=== PATIENT | female | born 1940 | race Caucasian/White ===

== ENCOUNTER 2018-01-07 11:51 | Inpatient (IN) | payer OTHER ==
[~2018-01-07] VITALS: Ht 157.5 cm; Wt 73.0 kg
[2018-01-07] VITALS (10 sets, daily range): BP systolic 158–214; BP diastolic 53–92
[2018-01-07] MEDS ORDERED: IPRATRPIUM/ALBUTEROL 0.5/2.5MG 3 ML NEBU. ONE (12:27)
--- NOTE | 2018-01-07 12:37 | RAD ---
AP PORTABLE CHEST Clinical Indication: weakness, shortness of breath. Comparison: None. Findings: Atherosclerotic aortic arch. Cardiac size is normal. Mild pulmonary vascular congestion. There is left basilar airspace disease. Cannot exclude small left pleural effusion. There is no pneumothorax. Degenerative endplate spurring in the thoracic spine. IMPRESSION: 1. Left basilar pneumonia or atelectasis or scarring. 2. Cannot exclude small left pleural effusion. 3. Mild pulmonary vascular congestion.
[2018-01-07 12:41] LABS: BASO % 0 % (0-3); EOS % 0 % (0-3); HEMATOCRIT 33.4 % (36.0-47.0); HEMOGLOBIN 10.4 g/dL (12.0-15.5); LYMPH # 0.2 x10^3/uL (1.0-4.8); LYMPH % 2 % (24-48); MEAN CORPUSCULAR HEMOGLOBIN 28 pg (25-35); MEAN CORPUSCULAR HGB CONC 31 g/dL (31-37); MEAN CORPUSCULAR VOLUME 88 fL (79-100); MONO # 0.4 x10^3/uL (0.0-1.1); MONO % 4 % (0-9); NEUT # 9.7 x10^3uL (1.8-7.7); NEUT % 94 % (31-73); PLATELET COUNT 225 x10^3/uL (140-400); RED BLOOD COUNT 3.77 x10^6/uL (3.50-5.40); RED CELL DISTRIBUTION WIDTH 17.5 % (11.5-14.5); WHITE BLOOD COUNT 10.4 x10^3/uL (4.0-11.0)
[2018-01-07] MEDS ORDERED: IPRATRPIUM/ALBUTEROL 0.5/2.5MG 3 ML NEBU. NEB ONE (12:45)
[2018-01-07] MEDS ORDERED: methylPREDNISolone SOD SUCC PF 125 MG/2 ML VIAL. IV ONE (12:45)
--- NOTE | 2018-01-07 12:54 | PHYS DOC ---
Adult General Chief Complaint Chief Complaint: SHORTNESS OF BREATH HPI HPI 77-year-old male patient resident of assisted on 4 L of oxygen was seen this morning at her usual condition at her on 11 AM phoned with respiratory distress without home oxygen O2 sats of 70s that improved with starting oxygen to low 90s. Patient had history of recent hospitalization 2 weeks ago at [facility] for right great toe amputation and developed pneumonia and renal insufficiency. Patient is in respiratory distress and unable to give history. Review of Systems Review of Systems Unable to obtain because of medical condition and respiratory distress Current Medications Current Medications Current Medications Medications (Trade) Dose Ordered Sig/Carmelo Start Time Stop Time Status Last Admin Dose Admin Albuterol/ Ipratropium (Duoneb) 3 ml STK-MED ONCE 01/07/18 12:27 01/07/18 12:28 DC Methylprednisolone Sodium Succinate (SOLU-Medrol 125MG VIAL) 125 mg 1X ONCE 01/07/18 12:45 01/07/18 12:47 DC 01/07/18 12:34 125 MG Allergies Allergies Allergies Coded Allergies Type Severity Reaction Last Updated Verified morphine Allergy Unknown 01/07/18 Yes prochlorperazine Allergy Unknown 01/07/18 Yes trifluoperazine Allergy Unknown 01/07/18 Yes Physical Exam Physical Exam Constitutional: Well developed,moderate distress, non-toxic appearance. [] HENT: Normocephalic, atraumatic, bilateral external ears normal, oropharynx moist, no oral exudates, nose normal. [] Eyes: PERRLA, EOMI, conjunctiva normal, no discharge. [] Neck: Normal range of motion, no tenderness, supple, no stridor. [] Cardiovascular: No tachycardia, no murmur [] Lungs & Thorax: Respiratory distress with intercostal dissection and bilateral wheezing and rales Abdomen: Bowel sounds normal, soft, no tenderness, no masses, no pulsatile masses. [] Skin: Warm, dry, no erythema, groin rash Back: No tenderness, no CVA tenderness. [] Extremities: No tenderness, no cyanosis, no clubbing, ROM intact, no edema, right great toe in surgical dressing after amputation. [] Neurologic: Alert and oriented X 3, moves all extremities Current Patient Data Lab Results Laboratory Tests Test 01/07/18 12:10 White Blood Count 10.4 x10^3/uL (4.0-11.0) Red Blood Count 3.77 x10^6/uL (3.50-5.40) Hemoglobin 10.4 g/dL (12.0-15.5) L Hematocrit 33.4 % (36.0-47.0) L Mean Corpuscular Volume 88 fL (79-100) Mean Corpuscular Hemoglobin 28 pg (25-35) Mean Corpuscular Hemoglobin Concent 31 g/dL (31-37) Red Cell Distribution Width 17.5 % (11.5-14.5) H Platelet Count 225 x10^3/uL (140-400) Neutrophils (%) (Auto) 94 % (31-73) H Lymphocytes (%) (Auto) 2 % (24-48) L Monocytes (%) (Auto) 4 % (0-9) Eosinophils (%) (Auto) 0 % (0-3) Basophils (%) (Auto) 0 % (0-3) Neutrophils # (Auto) 9.7 x10^3uL (1.8-7.7) H Lymphocytes # (Auto) 0.2 x10^3/uL (1.0-4.8) L Monocytes # (Auto) 0.4 x10^3/uL (0.0-1.1) Eosinophils # (Auto) 0.0 x10^3/uL (0.0-0.7) Basophils # (Auto) 0.0 x10^3/uL (0.0-0.2) Prothrombin Time 11.3 SEC (9.4-11.4) Prothrombin Time INR 1.1 (0.9-1.1) EKG EKG EKG interpreted by me. EKG at 1236 showed normal sinus rhythm, prolonged SD interval, poor R-wave progress in anterior leads, no acute ST and T wave abnormality,[] Radiology/Procedures Radiology/Procedures [] [address] [address] IMAGING REPORT Signed PATIENT: DENIS CASSIDY ACCOUNT: [id number] : 1940 LOCATION: ER AGE: 77 SEX: F EXAM STATUS: PRE ER ORD. PHYSICIAN: ANDREW NUNEZ MD REASON: weakness of breath PROCEDURE: PORTABLE CHEST 1V AP PORTABLE CHEST Clinical Indication: weakness, shortness of breath. Comparison: None. Findings: Atherosclerotic aortic arch. Cardiac size is normal. Mild pulmonary vascular congestion. There is left basilar airspace disease. Cannot exclude small left pleural effusion. There is no pneumothorax. Degenerative endplate spurring in the thoracic spine. IMPRESSION: 1. Left basilar pneumonia or atelectasis or scarring. 2. Cannot exclude small left pleural effusion. 3. Mild pulmonary vascular congestion. DICTATED AND SIGNED BY: DAY BULLARD MD DATE: 01/07/18 1232 CC: ANDREW NUNEZ MD ~ Course & Med Decision Making Course & Med Decision Making Pertinent Labs and Imaging studies reviewed. (See chart for details) Evaluation of patient in ER showed 77-year-old female patient with recent hospitalization with pneumonia brought in because of hypoxia. Patient has respiratory distress and BiPAP was started because of CO2 of 60 and PaO2 of 69. Patient had several abnormal finding and treated with IV fluid because of sepsis even BNP was elevated. Antibiotic for pneumonia and influenza A was started. Plan to admit patient to ICU. Dr. Villalobos informed at 1340 and agreed with her and of care. Patient and her family informed about plan of care and needs for admission. Repeat ABG is pending. Dragon Disclaimer Dragon Disclaimer This electronic medical record was generated, in whole or in part, using a voice recognition dictation system. Departure Departure: Impression: Primary Impression: Sepsis Additional Impressions: HCAP (healthcare-associated pneumonia) Hypoxia UTI (urinary tract infection) Renal insufficiency Hyperkalemia CHF (congestive heart failure) Uncontrolled diabetes mellitus Influenza A Skin rash Disposition: ADMITTED INPATIENT (At 1342) Admitting Physician: Bernarda Villalobos Condition: GUARDED Referrals: NON,STAFF (PCP) Critical Care Time Critical care time was [80] minutes exclusive of procedures. Problem Qualifiers ANDREW NUNEZ MD Jan 07, 2018 12:54
[2018-01-07 12:55] LABS: INFLUENZA A PATIENT POSITIVE (NEGATIVE); INFLUENZA B PATIENT NEGATIVE (NEGATIVE)
[2018-01-07 12:58] LABS: ALBUMIN 2.6 g/dL (3.4-5.0); ALBUMIN/GLOBULIN RATIO 0.6 (1.0-1.7); CALCIUM 9.6 mg/dL (8.5-10.1); CREATININE 1.6 mg/dL (0.6-1.0); GFR 31.1; TOTAL BILIRUBIN 0.4 mg/dL (0.2-1.0); TOTAL PROTEIN 7.2 g/dL (6.4-8.2)
[2018-01-07 13:00] LABS: POTASSIUM 6.1 mmol/L (3.5-5.1)
[2018-01-07] MEDS ORDERED: IV NORMAL SALINE 1,000ML 1,000 ML IV ONE (13:15)
[2018-01-07] MEDS ORDERED: SODIUM POLYSTYRENE SULFONATE 15 GM/60 ML ORAL.SUSP. PO ONE (13:30)
[2018-01-07] MEDS ORDERED: INSULIN REGULAR 100 UNIT/ML 10ML VIAL. IV ONE (13:30)
[2018-01-07] MEDS ORDERED: ALBUTEROL SULFATE 2.5 MG/3 ML NEBU. CONT NEB ONE (13:30)
[2018-01-07] MEDS ORDERED: SODIUM BICARB ADULT 8.4% 50 MEQ/50 ML DISP.SYRIN. IV ONE (13:30)
[2018-01-07] MEDS ORDERED: DEXTROSE 50% 25 GM / 50ML DISP.SYRIN. IV ONE (13:30)
[2018-01-07] MEDS ORDERED: IV NORMAL SALINE 50ML 50 ML ONE (13:35)
[2018-01-07] MEDS ORDERED: PIPERACILLIN/TAZOBACTAM 3.375 GM VIAL IV ONE (13:35)
[2018-01-07] MEDS ORDERED: VANCOMYCIN 1 GM VIAL. ONE (13:36)
[2018-01-07 13:37] LABS: BGAS PH 7.33 (7.35-7.45)
[2018-01-07 13:38] LABS: AMORPHOUS SEDIMENT,UR PRESENT /HPF; BACTERIA,URINE MOD /HPF (0-FEW); BILIRUBIN,URINE NEG (NEG); CLARITY,URINE CLOUDY; COLOR,URINE YELLOW; GLUCOSE,URINE 100 mg/dL (NEG); NITRITE,URINE NEG (NEG); SQUAMOUS EPITHELIAL CELL,UR FEW /LPF; UROBILINOGEN,URINE 0.2 mg/dL (0.2 mg/dL); WBC,URINE >40 /HPF (0-4)
[2018-01-07] MEDS ORDERED: OSELTAMIVIR 75 MG CAPSULE PO ONE (13:45)
[2018-01-07] MEDS ORDERED: VANCOMYCIN 1 GM in IV NORMAL SALINE 250ML 250 ML IV ONE (13:45)
[2018-01-07] MEDS ORDERED: PIPERACILLIN/TAZOBACTAM 3.375 GM in IV NORMAL SALINE 50ML 50 ML IV ONE (13:45)
[2018-01-07] MEDS ORDERED: VANCOMYCIN PER PHARMACY MC PRN (15:00)
[2018-01-07] MEDS ORDERED: PIP/TAZO PER PHARMACY MC PRN (15:00)
[2018-01-07] MEDS ORDERED: ACETAMINOPHEN 500 MG TABLET PO PRN (15:00)
[2018-01-07] MEDS: IV NORMAL SALINE 1,000ML 1,000 ML IV SCH (15:00)
[2018-01-07] MEDS ORDERED: VANCOMYCIN 2 GM in IV NORMAL SALINE 500ML 500 ML IV ONE (16:00)
[2018-01-07 16:10] LABS: CALCIUM 8.9 mg/dL (8.5-10.1); CREATININE 1.5 mg/dL (0.6-1.0); GFR 33.5; POTASSIUM 4.5 mmol/L (3.5-5.1)
--- NOTE | 2018-01-07 18:34 | EKG ---
[address] [address] Test Date: 2018-01-07 Test Time: 12:36:44 Pat Name: DENIS CASSIDY Department: Room: ICU02 1 Gender: F Manager Payment: RHONDA : 1940 Requested By: ANDREW NUNEZ Order Number: [id number] Reading MD: Conrad Mtz Measurements Intervals [place] Rate: 82 P: 90 SC: 264 QRS: 2 QRSD: 76 T: 56 QT: 354 QTc: 416 Interpretive Statements SINUS RHYTHM PROLONGED SC INTERVAL R-S TRANSITION ZONE IN V LEADS DISPLACED TO THE LEFT ST & T ABNORMALITY, CONSIDER HIGH LATERAL ISCHEMIA OR LEFT VENTRICULAR STRAIN ABNORMAL ECG RI6.01 No previous ECG available for comparison Electronically Signed On 01-08-2018 16:45:34 RETIREMENT SPECIALIST by Conrad Mtz
[2018-01-07 19:25] LABS: BGAS PH 7.26 (7.35-7.45)
[2018-01-07] MEDS ORDERED: LABETALOL 20 MG/4 ML DISP.SYRIN. IVP PRN (19:30)
[2018-01-07] MEDS ORDERED: DEXTROSE 50% 25 GM / 50ML DISP.SYRIN. IV PRN (19:30)
[2018-01-07] MEDS: LABETALOL 20 MG/4 ML DISP.SYRIN. IVP PRN ×2 (19:47→23:05)
--- NOTE | 2018-01-07 21:50 | PDOC1 ---
HISTORY & PHYSICAL HPI: HPI: 77-year-old male patient resident of [facility] on 4 L of oxygen was seen this morning at her usual condition at her on 11 AM phoned with respiratory distress without home oxygen O2 sats of 70s that improved with starting oxygen to low 90s. Patient had history of recent hospitalization 2 weeks ago at [facility] for right great toe amputation and developed pneumonia and renal insufficiency. Patient is in respiratory distress and unable to give history.is positive for influenza A. Did get the flu shot. Was placed on bipap in the Er for acute hypoxic hypercarbic respiratory failure. Also has pneumonia.2 PROBLEMS: Problems Medical Problems: (1) Influenza A Status: Acute (2) Sepsis Status: Acute 3. recent right great toe amputation 4 ACUTE HYPOXIC HYPERCARBIC RESPIRATORY FAILURE ACCELERATED HYPERTENTION PNEUMONIA HYPERKALEMIA PAST MEDICAL HISTORY: PMH: DIABETES HYPERTENTION DIABETIC NEUROPATHY PSH: RIGHT GREAT TOE AMPUTATION-RECENT SH: FORMER SMOKER, LIVES IN HER OWN HOME ALLERGIES: Allergies Coded Allergies Type Severity Reaction Last Updated Verified morphine Allergy Unknown 01/07/18 Yes prochlorperazine Allergy Unknown 01/07/18 Yes trifluoperazine Allergy Unknown 01/07/18 Yes MEDS: MEDICATIONS: UNKNOWN SHE IS UNABLE TO VERBALIZE Current Medications Medications (Trade) Dose Ordered Sig/Carmelo Start Time Stop Time Status Last Admin Dose Admin Acetaminophen (Tylenol) 500 mg PRN Q6HRS PRN 01/07/18 15:00 Albuterol Sulfate (Ventolin) 10 mg 1X ONCE 01/07/18 13:30 01/07/18 13:31 DC 01/07/18 13:55 10 MG Albuterol/ Ipratropium (Duoneb) 3 ml RTQID 01/07/18 21:15 Dextrose 12.5 gm PRN Q15MIN PRN 01/07/18 19:30 Fentanyl Citrate (Fentanyl 2ml Vial) 25 mcg PRN Q4HRS PRN 01/07/18 21:30 Guaifenesin (MUCINEX ER with DM) 1 tab BID 01/07/18 21:30 Insulin Aspart (NovoLOG) 0-7 UNITS TIDACHC 01/07/18 21:00 Insulin Human Regular (NovoLIN R) 10 unit 1X ONCE 01/07/18 13:30 01/07/18 13:31 DC 01/07/18 14:10 10 UNIT Labetalol HCl (Normodyne) 10 mg PRN Q6HRS PRN 01/07/18 19:30 Lactobacillus Rhamnosus (Culturelle) 1 cap BID 01/07/18 21:00 Methylprednisolone Sodium Succinate (SOLU-Medrol 125MG VIAL) 125 mg 1X ONCE 01/07/18 12:45 01/07/18 12:47 DC 01/07/18 12:34 125 MG Oseltamivir Phosphate (Tamiflu) 75 mg BID 01/07/18 21:00 01/12/18 20:59 Piperacillin Sod/ Tazobactam Sod (Zosyn Per Pharmacy) 1 each PRN DAILY PRN 01/07/18 15:00 Piperacillin Sod/ Tazobactam Sod (Zosyn) 3.375 gm STK-MED ONCE 01/07/18 13:35 01/07/18 13:36 DC Piperacillin Sod/ Tazobactam Sod 3.375 gm/Sodium Chloride 50 ml @ 100 mls/hr Q6H 01/07/18 21:00 Sodium Polystyrene Sulfonate (Kayexalate) 15 gm 1X ONCE 01/07/18 13:30 01/07/18 13:31 DC 01/07/18 14:31 15 GM Sodium Bicarbonate 50 meq 1X ONCE 01/07/18 13:30 01/07/18 13:31 DC 01/07/18 13:46 50 MEQ Sodium Chloride 1,000 ml @ 75 mls/hr [id number] 01/07/18 13:54 01/08/18 13:53 01/07/18 15:00 75 MLS/HR Vancomycin HCl 1 each 1X ONCE 01/09/18 15:30 01/09/18 15:31 Vancomycin HCl (Vanco Per Pharmacy) 1 each PRN DAILY PRN 01/07/18 15:00 Vancomycin HCl 1.25 gm/Sodium Chloride 250 ml @ 167 mls/hr Q24H 01/08/18 16:00 Vancomycin HCl 1 gm/Sodium Chloride 250 ml @ 250 mls/hr 1X ONCE 01/07/18 13:45 01/07/18 14:44 DC Vancomycin HCl 2 gm/Sodium Chloride 500 ml @ 250 mls/hr 1X ONCE 01/07/18 16:00 01/07/18 17:59 DC 01/07/18 15:35 250 MLS/HR VITALS: Vital Signs Date Time Temp Pulse Resp B/P (MAP) Pulse Ox O2 Delivery O2 Flow Rate FiO2 01/07/18 20:30 22 94 BiPAP/CPAP 10.0 01/07/18 19:47 88 215/98 01/07/18 19:00 98.7 LABS: Laboratory Tests Test 01/07/18 11:55 01/07/18 12:10 01/07/18 12:20 01/07/18 13:05 Blood Gas pH 7.33 (7.35-7.45) Blood Gas PCO2 66 mmHg (35-45) Blood Gas PO2 69 mmHg (71-100) Blood Gas HCO3 33 mmol/L (22-26) Arterial Bld O2 Saturation (Calc) 92 % (92-99) FiO2 32 % White Blood Count 10.4 x10^3/uL (4.0-11.0) Red Blood Count 3.77 x10^6/uL (3.50-5.40) Hemoglobin 10.4 g/dL (12.0-15.5) Hematocrit 33.4 % (36.0-47.0) Mean Corpuscular Volume 88 fL (79-100) Mean Corpuscular Hemoglobin 28 pg (25-35) Mean Corpuscular Hemoglobin Concent 31 g/dL (31-37) Red Cell Distribution Width 17.5 % (11.5-14.5) Platelet Count 225 x10^3/uL (140-400) Neutrophils (%) (Auto) 94 % (31-73) Lymphocytes (%) (Auto) 2 % (24-48) Monocytes (%) (Auto) 4 % (0-9) Eosinophils (%) (Auto) 0 % (0-3) Basophils (%) (Auto) 0 % (0-3) Neutrophils # (Auto) 9.7 x10^3uL (1.8-7.7) Lymphocytes # (Auto) 0.2 x10^3/uL (1.0-4.8) Monocytes # (Auto) 0.4 x10^3/uL (0.0-1.1) Eosinophils # (Auto) 0.0 x10^3/uL (0.0-0.7) Basophils # (Auto) 0.0 x10^3/uL (0.0-0.2) Prothrombin Time 11.3 SEC (9.4-11.4) Prothromb Time International Ratio 1.1 (0.9-1.1) Sodium Level 138 mmol/L (136-145) Potassium Level 6.1 mmol/L (3.5-5.1) Chloride Level 101 mmol/L (98-107) Carbon Dioxide Level 33 mmol/L (21-32) Anion Gap 4 (6-14) Blood Urea Nitrogen 28 mg/dL (7-20) Creatinine 1.6 mg/dL (0.6-1.0) Estimated GFR (Cockcroft-Gault) 31.1 BUN/Creatinine Ratio 18 (6-20) Glucose Level 282 mg/dL (70-99) Lactic Acid Level 2.3 mmol/L (0.4-2.0) Calcium Level 9.6 mg/dL (8.5-10.1) Total Bilirubin 0.4 mg/dL (0.2-1.0) Aspartate Amino Transf (AST/SGOT) 28 U/L (15-37) Alanine Aminotransferase (ALT/SGPT) 27 U/L (14-59) Alkaline Phosphatase 86 U/L (46-116) Creatine Kinase 32 U/L (26-192) Creatine Kinase MB (Mass) 0.8 ng/mL (0.0-3.6) Creatine Kinase MB Relative Index 2.5 % (0-4) Troponin I Quantitative 0.060 ng/mL (0-0.055) GD-Sfe-G-Type Natriuretic Peptide 8829 pg/mL (0-449) Total Protein 7.2 g/dL (6.4-8.2) Albumin 2.6 g/dL (3.4-5.0) Albumin/Globulin Ratio 0.6 (1.0-1.7) Influenza Type A (Rapid) Positive (NEGATIVE) Influenza Type B (Rapid) Negative (NEGATIVE) Urine Collection Type U cath Urine Color Yellow Urine Clarity Cloudy Urine pH 5.0 Urine Specific [place] 1.025 Urine Protein >100 mg/dl (NEG-TRACE) Urine Glucose (UA) 100 mg/dL (NEG) Urine Ketones (Stick) Neg mg/dL (NEG) Urine Blood Mod (NEG) Urine Nitrite Neg (NEG) Urine Bilirubin Neg (NEG) Urine Urobilinogen Dipstick 0.2 mg/dL (0.2 mg/dL) Urine Leukocyte Esterase Trace (NEG) Urine RBC 1-2 /HPF (0-2) Urine WBC >40 /HPF (0-4) Urine Squamous Epithelial Cells Few /LPF Urine Amorphous Sediment Present /HPF Urine Bacteria Mod /HPF (0-FEW) Test 01/07/18 15:54 01/07/18 18:45 01/07/18 18:58 01/07/18 20:55 Sodium Level 143 mmol/L (136-145) Potassium Level 4.5 mmol/L (3.5-5.1) Chloride Level 105 mmol/L (98-107) Carbon Dioxide Level 34 mmol/L (21-32) Anion Gap 4 (6-14) Blood Urea Nitrogen 27 mg/dL (7-20) Creatinine 1.5 mg/dL (0.6-1.0) Estimated GFR (Cockcroft-Gault) 33.5 Glucose Level 184 mg/dL (70-99) Lactic Acid Level 1.3 mmol/L (0.4-2.0) Calcium Level 8.9 mg/dL (8.5-10.1) Blood Gas pH 7.26 (7.35-7.45) Blood Gas PCO2 69 mmHg (35-45) Blood Gas PO2 66 mmHg (71-100) Blood Gas HCO3 31 mmol/L (22-26) Arterial Bld O2 Saturation (Calc) 88 % (92-99) FiO2 35 % Troponin I Quantitative 0.102 ng/mL (0-0.055) Glucose (Fingerstick) 237 mg/dL (70-99) IMAGES: RESULTS: CXR-BILATERAL PNEUMONIA ROS: TIRED , SOB, PHYSICAL EXAM: PALE, TONGUE DRY NECK SUPPLE LUNGS WITH DIFFUSE WHEEZES BILATERALLY CVRRR-NOT TACHY ABDOMEN SOFT, NONTENDER TO PALPATION EXTREMETIES WITHOUT EDEMA-BANDAGE ON TIGHT GREAT TOE AREA. NOW MORE ALERT, RESTING MORE COMFORTABLY AFTER FENTANYL VTE PROPHYLAXIS: VTE Pharmacological Prophylaxi: Yes ASSESSMENT/PLAN ASSESSMENT: roblems: (1) Influenza A Status: Acute (2) Sepsis Status: Acute 3. recent right great toe amputation 4 ACUTE HYPOXIC HYPERCARBIC RESPIRATORY FAILURE ACCELERATED HYPERTENTION PNEUMONIA HYPERKALEMIA PLAN: BIPAP, ADJUSTMENTS MADE FOR HYPERCAPNIA, BREATHING TREATMENTS, ANTIBIOTICS. IF DOESN'T IMPROVE WILL SEND TO [facility]. RUSH ANTON DO Jan 07, 2018 21:50
[2018-01-07] MEDS: PIPERACILLIN/TAZOBACTAM 3.375 GM in IV NORMAL SALINE 50ML 50 ML IV SCH (21:53)
[2018-01-07] MEDS: IPRATRPIUM/ALBUTEROL 0.5/2.5MG 3 ML NEBU. NEB SCH (21:57)
[2018-01-07] MEDS: guaiFENesin DM 600/30MG 1 TAB TAB.ER.12H PO SCH (22:01)
[2018-01-07] MEDS: ENOXAPARIN 30 MG/0.3 ML DISP.SYRIN. SQ SCH (22:01)
[2018-01-07] MEDS: OSELTAMIVIR 75 MG CAPSULE PO SCH (22:01)
[2018-01-07] MEDS: LACTOBACILLUS RHAMNOSUS GG 1 CAPSULE. PO SCH (22:02)
[2018-01-07] MEDS: INSULIN ASPART 300 UNITS/3 ML INSULN.PEN SQ SCH (22:19)
[2018-01-07 22:39] LABS: BGAS PH 7.34 (7.35-7.45)
[2018-01-08] VITALS (21 sets, daily range): BP systolic 140–225; BP diastolic 50–101
[2018-01-08] MEDS: PIPERACILLIN/TAZOBACTAM 3.375 GM in IV NORMAL SALINE 50ML 50 ML IV SCH ×4 (03:04→21:10)
[2018-01-08] MEDS: IPRATRPIUM/ALBUTEROL 0.5/2.5MG 3 ML NEBU. NEB SCH ×4 (05:05→20:43)
[2018-01-08 06:48] LABS: ALBUMIN 2.3 g/dL (3.4-5.0); ALBUMIN/GLOBULIN RATIO 0.6 (1.0-1.7); CALCIUM 8.7 mg/dL (8.5-10.1); CREATININE 1.5 mg/dL (0.6-1.0); GFR 33.5; POTASSIUM 3.9 mmol/L (3.5-5.1); TOTAL BILIRUBIN 0.5 mg/dL (0.2-1.0); TOTAL PROTEIN 6.4 g/dL (6.4-8.2)
[2018-01-08] MEDS: IV NORMAL SALINE 1,000ML 1,000 ML IV SCH (08:04)
[2018-01-08 08:30] LABS: BGAS PH 7.44 (7.35-7.45)
[2018-01-08] MEDS: LACTOBACILLUS RHAMNOSUS GG 1 CAPSULE. PO SCH ×2 (08:31→21:10)
[2018-01-08] MEDS: guaiFENesin DM 600/30MG 1 TAB TAB.ER.12H PO SCH ×2 (08:31→21:10)
[2018-01-08] MEDS: OSELTAMIVIR 75 MG CAPSULE PO SCH ×2 (08:31→21:12)
[2018-01-08] MEDS: INSULIN ASPART 300 UNITS/3 ML INSULN.PEN SQ SCH ×4 (08:48→21:29)
[2018-01-08] MEDS ORDERED: hydrALAZINE 20 MG/ML VIAL. IV PRN (09:00)
[2018-01-08] MEDS ORDERED: ACETAMINOPHEN 500 MG TABLET PO PRN (09:00)
[2018-01-08] MEDS ORDERED: FUROSEMIDE 20 MG/2 ML VIAL ONE (09:10)
--- NOTE | 2018-01-08 09:48 | PDOC2 ---
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 She was apparently admitted to [facility] 2 weeks ago for a great toe amputation. She was then discharged to rehab. She developed pneumonia renal insufficiency. She was apparently seen yesterday am and was in stable condition. By lunchtime she had developed dyspnea and hypoxia with SaO2 down to 70s. This improved with oxygen and she was transported to the ED where she was found to be in acute hypercapnic, hypoxic respiratory failure and positive for influenza A. She was placed on BiPap which she continues to wear. History is difficult to obtain due to cough, dyspnea and BiPaP. She reports cough and dyspnea for about 4 days. She denies chest pain or palpitations. She reports prior history of CAD and stents and her last cath was about 4 years ago. Cardiovascular: CAD, CHF, HTN, hyperipidemia Pulmonary: COPD Renal/: Chronic renal insuff Endocrine: Diabetes, Other (diabetic neuropathy) Past Surgical History recent R great toe amputation amputation toes left foot Family History non contributory due to age Social History prior smoker, no illicit drugs, no significant ETOH. Lives in [place]. Current Medications Current Medications Methylprednisolone Sodium Succinate (SOLU-Medrol 125MG VIAL) 125 mg 1X ONCE IV Last administered on 01/07/18at 12:34; Start 01/07/18 at 12:45; Stop 01/07/18 at 12:47; Status DC Albuterol/ Ipratropium (Duoneb) 3 ml 1X ONCE NEB Last administered on at 12:42; Start 01/07/18 at 12:45; Stop 01/07/18 at 12:47; Status DC Albuterol/ Ipratropium (Duoneb) 3 ml STK-MED ONCE .ROUTE ; Start 01/07/18 at 12: 27; Stop 01/07/18 at 12:28; Status DC Albuterol Sulfate (Ventolin) 10 mg 1X ONCE CONT NEB Last administered on at 13:55; Start 01/07/18 at 13:30; Stop 01/07/18 at 13:31; Status DC Sodium Polystyrene Sulfonate (Kayexalate) 15 gm 1X ONCE PO Last administered on 01/07/18at 14:31; Start 01/07/18 at 13:30; Stop 01/07/18 at 13:31; Status DC Dextrose 25 gm 1X ONCE IV ; Start 01/07/18 at 13:30; Stop 01/07/18 at 13:31; Status DC Insulin Human Regular (NovoLIN R) 10 unit 1X ONCE IV Last administered on 01/07at 14:10; Start 01/07/18 at 13:30; Stop 01/07/18 at 13:31; Status DC Sodium Bicarbonate 50 meq 1X ONCE IV Last administered on 01/07/18at 13:46; Start 01/07/18 at 13:30; Stop 01/07/18 at 13:31; Status DC Oseltamivir Phosphate (Tamiflu) 75 mg 1X ONCE PO Last administered on at 13:43; Start 01/07/18 at 13:45; Stop 01/07/18 at 13:46; Status DC Piperacillin Sod/ Tazobactam Sod 3.375 gm/Sodium Chloride 50 ml @ 100 mls/hr 1X ONCE IV Last administered on 01/07/18at 14:30; Start 01/07/18 at 13:45; Stop 01/07/18 at 14:14; Status DC Vancomycin HCl 1 gm/Sodium Chloride 250 ml @ 250 mls/hr 1X ONCE IV ; Start 10/14 at 13:45; Stop 01/07/18 at 14:44; Status DC Sodium Chloride 1,000 ml @ 1,000 mls/hr 1X ONCE IV Last administered on at 13:51; Start 01/07/18 at 13:15; Stop 01/07/18 at 14:14; Status DC Sodium Chloride 50 ml @ As Directed STK-MED ONCE .ROUTE ; Start 01/07/18 at 13: 35; Stop 01/07/18 at 13:36; Status DC Piperacillin Sod/ Tazobactam Sod (Zosyn) 3.375 gm STK-MED ONCE IV ; Start at 13:35; Stop 01/07/18 at 13:36; Status DC Vancomycin HCl 1 gm STK-MED ONCE .ROUTE ; Start 01/07/18 at 13:36; Stop at 13:37; Status DC Sodium Chloride 1,000 ml @ 75 mls/hr [id number] IV Last administered on at 08:04; Start 01/07/18 at 13:54; Stop 01/08/18 at 13:53 Piperacillin Sod/ Tazobactam Sod (Zosyn Per Pharmacy) 1 each PRN DAILY PRN MC SEE COMMENTS; Start 01/07/18 at 15:00 Vancomycin HCl (Vanco Per Pharmacy) 1 each PRN DAILY PRN MC SEE COMMENTS; Start 01/07/18 at 15:00 Oseltamivir Phosphate (Tamiflu) 75 mg BID PO Last administered on 01/08/18at 08: 31; Start 01/07/18 at 21:00; Stop 01/12/18 at 20:59 Acetaminophen (Tylenol) 500 mg PRN Q6HRS PRN PO PAIN / TEMP; Start 01/07/18 at 15:00; Stop 01/08/18 at 08:56; Status DC Piperacillin Sod/ Tazobactam Sod 3.375 gm/Sodium Chloride 50 ml @ 100 mls/hr Q6H IV Last administered on 01/08/18at 08:32; Start 01/07/18 at 21:00 Vancomycin HCl 2 gm/Sodium Chloride 500 ml @ 250 mls/hr 1X ONCE IV Last administered on 01/07/18at 15:35; Start 01/07/18 at 16:00; Stop 01/07/18 at 17:59 ; Status DC Vancomycin HCl 1.25 gm/Sodium Chloride 250 ml @ 167 mls/hr Q24H IV ; Start 11/13 at 16:00 Vancomycin HCl 1 each 1X ONCE MC ; Start 01/09/18 at 15:30; Stop 01/09/18 at 15 :31 Labetalol HCl (Normodyne) 5 mg PRN Q6HRS PRN IVP HYPERTENSION, SEE COMMENTS Last administered on 01/07/18at 23:05; Start 01/07/18 at 19:30 Labetalol HCl (Normodyne) 10 mg PRN Q6HRS PRN IVP HYPERTENSION, SEE COMMENTS Last administered on 01/08/18at 06:21; Start 01/07/18 at 19:30 Insulin Aspart (NovoLOG) 0-7 UNITS TIDACHC SQ Last administered on 01/08/18at 08 :48; Start 01/07/18 at 21:00 Dextrose 12.5 gm PRN Q15MIN PRN IV SEE COMMENTS; Start 01/07/18 at 19:30 Lactobacillus Rhamnosus (Culturelle) 1 cap BID PO Last administered on at 08:31; Start 01/07/18 at 21:00 Fentanyl Citrate (Fentanyl 2ml Vial) 25 mcg 1X ONCE IV Last administered on 10/14at 20:30; Start 01/07/18 at 20:30; Stop 01/07/18 at 20:31; Status DC Albuterol/ Ipratropium (Duoneb) 3 ml RTQID NEB Last administered on 01/08/18at 05:05; Start 01/07/18 at 21:15 Guaifenesin (MUCINEX ER with DM) 1 tab BID PO Last administered on 01/08/18at 08 :31; Start 01/07/18 at 21:30 Fentanyl Citrate (Fentanyl 2ml Vial) 25 mcg PRN Q4HRS PRN IV PAIN Last administered on 01/08/18at 00:37; Start 01/07/18 at 21:30 Enoxaparin Sodium (Lovenox) 30 mg Q24H SQ Last administered on 01/07/18at 22:01 ; Start 01/07/18 at 22:00 Acetaminophen (Tylenol) 1,000 mg PRN Q6HRS PRN PO PAIN / TEMP; Start 01/08/18 at 09:00 Hydralazine HCl (Apresoline) 10 mg PRN Q4HRS PRN IV ELEVATED BP, SEE COMMENTS Last administered on 01/08/18at 09:33; Start 01/08/18 at 09:00 Furosemide (Lasix) 20 mg STK-MED ONCE .ROUTE Last administered on 01/08/18at 09: 34; Start 01/08/18 at 09:10; Stop 01/08/18 at 09:11; Status DC Hydralazine HCl (Apresoline) 50 mg BID PO ; Start 01/08/18 at 21:00 Allergies: Coded Allergies: morphine (Verified Allergy, Unknown, 01/07/18) prochlorperazine (Verified Allergy, Unknown, 01/07/18) trifluoperazine (Verified Allergy, Unknown, 01/07/18) Review of System as per HPI General: Alert, Oriented X3, Cooperative, mild distress HEENT: Atraumatic Lungs: Other (coarse rhonchi bilaterally) Heart: Regular rate, Normal S1, Normal S2 Abdomen: Normal bowel sounds, Soft Extremities: No cyanosis, Other (trace edema) Psych/Mental Status: Mental status NL, Mood NL VITALS Vital Signs Date Time Temp Pulse Resp B/P (MAP) Pulse Ox O2 Delivery O2 Flow Rate FiO2 01/08/18 09:44 73 20 216/69 (118) 96 BiPAP/CPAP 10.0 01/07/18 22:00 96.8 Labs Laboratory Tests Test 01/07/18 11:55 01/07/18 12:10 01/07/18 12:20 01/07/18 13:05 Blood Gas pH 7.33 (7.35-7.45) Blood Gas PCO2 62 mmHg (35-45) Blood Gas PO2 69 mmHg (71-100) Blood Gas HCO3 32 mmol/L (22-26) Arterial Bld O2 Saturation (Calc) 92 % (92-99) FiO2 32 % White Blood Count 10.4 x10^3/uL (4.0-11.0) Red Blood Count 3.77 x10^6/uL (3.50-5.40) Hemoglobin 10.4 g/dL (12.0-15.5) Hematocrit 33.4 % (36.0-47.0) Mean Corpuscular Volume 88 fL (79-100) Mean Corpuscular Hemoglobin 28 pg (25-35) Mean Corpuscular Hemoglobin Concent 31 g/dL (31-37) Red Cell Distribution Width 17.5 % (11.5-14.5) Platelet Count 225 x10^3/uL (140-400) Neutrophils (%) (Auto) 94 % (31-73) Lymphocytes (%) (Auto) 2 % (24-48) Monocytes (%) (Auto) 4 % (0-9) Eosinophils (%) (Auto) 0 % (0-3) Basophils (%) (Auto) 0 % (0-3) Neutrophils # (Auto) 9.7 x10^3uL (1.8-7.7) Lymphocytes # (Auto) 0.2 x10^3/uL (1.0-4.8) Monocytes # (Auto) 0.4 x10^3/uL (0.0-1.1) Eosinophils # (Auto) 0.0 x10^3/uL (0.0-0.7) Basophils # (Auto) 0.0 x10^3/uL (0.0-0.2) Prothrombin Time 11.3 SEC (9.4-11.4) Prothromb Time International Ratio 1.1 (0.9-1.1) Sodium Level 138 mmol/L (136-145) Potassium Level 6.1 mmol/L (3.5-5.1) Chloride Level 101 mmol/L (98-107) Carbon Dioxide Level 33 mmol/L (21-32) Anion Gap 4 (6-14) Blood Urea Nitrogen 28 mg/dL (7-20) Creatinine 1.6 mg/dL (0.6-1.0) Estimated GFR (Cockcroft-Gault) 31.1 BUN/Creatinine Ratio 18 (6-20) Glucose Level 282 mg/dL (70-99) Lactic Acid Level 2.3 mmol/L (0.4-2.0) Calcium Level 9.6 mg/dL (8.5-10.1) Total Bilirubin 0.4 mg/dL (0.2-1.0) Aspartate Amino Transf (AST/SGOT) 28 U/L (15-37) Alanine Aminotransferase (ALT/SGPT) 27 U/L (14-59) Alkaline Phosphatase 86 U/L (46-116) Creatine Kinase 32 U/L (26-192) Creatine Kinase MB (Mass) 0.8 ng/mL (0.0-3.6) Creatine Kinase MB Relative Index 2.5 % (0-4) Troponin I Quantitative 0.060 ng/mL (0-0.055) VE-Iao-R-Type Natriuretic Peptide 8829 pg/mL (0-449) Total Protein 7.2 g/dL (6.4-8.2) Albumin 2.6 g/dL (3.4-5.0) Albumin/Globulin Ratio 0.6 (1.0-1.7) Influenza Type A (Rapid) Positive (NEGATIVE) Influenza Type B (Rapid) Negative (NEGATIVE) Urine Collection Type U cath Urine Color Yellow Urine Clarity Cloudy Urine pH 5.0 Urine Specific [place] 1.025 Urine Protein >100 mg/dl (NEG-TRACE) Urine Glucose (UA) 100 mg/dL (NEG) Urine Ketones (Stick) Neg mg/dL (NEG) Urine Blood Mod (NEG) Urine Nitrite Neg (NEG) Urine Bilirubin Neg (NEG) Urine Urobilinogen Dipstick 0.2 mg/dL (0.2 mg/dL) Urine Leukocyte Esterase Trace (NEG) Urine RBC 1-2 /HPF (0-2) Urine WBC >40 /HPF (0-4) Urine Squamous Epithelial Cells Few /LPF Urine Amorphous Sediment Present /HPF Urine Bacteria Mod /HPF (0-FEW) Test 01/07/18 15:54 01/07/18 18:45 01/07/18 18:58 01/07/18 20:55 Sodium Level 143 mmol/L (136-145) Potassium Level 4.5 mmol/L (3.5-5.1) Chloride Level 105 mmol/L (98-107) Carbon Dioxide Level 34 mmol/L (21-32) Anion Gap 4 (6-14) Blood Urea Nitrogen 27 mg/dL (7-20) Creatinine 1.5 mg/dL (0.6-1.0) Estimated GFR (Cockcroft-Gault) 33.5 Glucose Level 184 mg/dL (70-99) Lactic Acid Level 1.3 mmol/L (0.4-2.0) Calcium Level 8.9 mg/dL (8.5-10.1) Blood Gas pH 7.26 (7.35-7.45) Blood Gas PCO2 69 mmHg (35-45) Blood Gas PO2 66 mmHg (71-100) Blood Gas HCO3 31 mmol/L (22-26) Arterial Bld O2 Saturation (Calc) 88 % (92-99) FiO2 35 % Troponin I Quantitative 0.102 ng/mL (0-0.055) Glucose (Fingerstick) 237 mg/dL (70-99) Test 01/07/18 21:50 01/08/18 01:00 01/08/18 05:53 01/08/18 08:10 Blood Gas pH 7.34 (7.35-7.45) 7.44 (7.35-7.45) Blood Gas PCO2 56 mmHg (35-45) 48 mmHg (35-45) Blood Gas PO2 68 mmHg (71-100) 77 mmHg (71-100) Blood Gas HCO3 31 mmol/L (22-26) 33 mmol/L (22-26) Arterial Bld O2 Saturation (Calc) 93 % (92-99) 96 % (92-99) FiO2 30 % 30 % Troponin I Quantitative 0.090 ng/mL (0-0.055) Sodium Level 146 mmol/L (136-145) Potassium Level 3.9 mmol/L (3.5-5.1) Chloride Level 107 mmol/L (98-107) Carbon Dioxide Level 30 mmol/L (21-32) Anion Gap 9 (6-14) Blood Urea Nitrogen 30 mg/dL (7-20) Creatinine 1.5 mg/dL (0.6-1.0) Estimated GFR (Cockcroft-Gault) 33.5 BUN/Creatinine Ratio 20 (6-20) Glucose Level 253 mg/dL (70-99) Calcium Level 8.7 mg/dL (8.5-10.1) Total Bilirubin 0.5 mg/dL (0.2-1.0) Aspartate Amino Transf (AST/SGOT) 61 U/L (15-37) Alanine Aminotransferase (ALT/SGPT) 49 U/L (14-59) Alkaline Phosphatase 116 U/L (46-116) Total Protein 6.4 g/dL (6.4-8.2) Albumin 2.3 g/dL (3.4-5.0) Albumin/Globulin Ratio 0.6 (1.0-1.7) Images CXR - Impression: Improving central vascular congestion and interstitial edema. Improved but persistent small left pleural effusion EKG - sinus rhythm, 1st degree AV block, no acute ischemic changes Assessment/Plan 1. troponin elevation - likely demand related. As she has a prior history of coronary disease and stents, check echo and consider MPI when medical problems resolved. 2. accelerated hypertension - Cardene drip, obtain home medication list and dosages and resume home meds. 3. acute on chronic hypercapnic, hypoxic respiratory failure multifactorial - mgmt of pneumonia and influenza as per PCP. 4. acute ?diastolic, heart failure - improving vascular congestion by CXR after small dose of lasix. Monitor and await echo. 5. Renal insufficiency - Mild. Request records from [facility] to establish baseline. 6. Diabetes - per PCP Problems: SB GUEVARA MD 01/09/18 0909: CONSULT Allergies: Coded Allergies: morphine (Verified Allergy, Unknown, 01/07/18) prochlorperazine (Verified Allergy, Unknown, 01/07/18) trifluoperazine (Verified Allergy, Unknown, 01/07/18) Assessment/Plan Late entry for 01/08/2018 Pt. seen and examined. 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 CC time > 35 min Malignant HTN, flash pulm edema. Now better. Echo reviewed - LV function normal. Continue BP control, treatment of flu Diuresis for volume overload. Problems: KEILA LAZO APRN Jan 08, 2018 09:48 SB GUEVARA MD Jan 09, 2018 09:09
--- NOTE | 2018-01-08 10:16 | RAD ---
Single view of the Chest 01/08/2018 11:32 AM Indication: dyspnea Comparison: Chest radiograph, yesterday Findings: There is no focal consolidation or infiltrate identified. There is no effusion or pneumothorax. The cardiomediastinal silhouette and pulmonary there is improvement in central vascular congestion and interstitial edema. Improved but persistent small left pleural effusion noted. No pneumothorax is seen. No acute osseous changes are seen. Impression: Improving central vascular congestion and interstitial edema. Improved but persistent small left pleural effusion
[2018-01-08] MEDS ORDERED: ALBUTEROL SULFATE 2.5 MG/3 ML NEBU. NEB PRN (13:30)
[2018-01-08] MEDS: ISOSORBIDE MONONITRATE ER 30 MG TAB.ER.24H PO SCH (13:49)
[2018-01-08] MEDS ORDERED: FUROSEMIDE 20 MG/2 ML VIAL IVP ONE (14:00)
[2018-01-08] MEDS ORDERED: AMLO5TAB2 PO (15:22)
[2018-01-08] MEDS ORDERED: ASPI-630 PO (15:22)
[2018-01-08] MEDS ORDERED: VANCOMYCIN 1.25 GM in IV NORMAL SALINE 250ML 250 ML IV SCH (16:00)
--- NOTE | 2018-01-08 16:06 | CARD ---
MR#: [id number] Date of Study: 01/08/2018 Ordering Physician: KEILA LAZO, Referring Physician: Garth QUINTANA: Agustin Myers [facility] APPROVED REPORT EXAM: Two-dimensional and M-mode echocardiogram with Doppler and color Doppler. Other Information Quality : GoodHR: 80bpm INDICATION Elevated Troponin RISK FACTORS Hypertension 2D DIMENSIONS RVDd2.5 (2.9-3.5cm)Left Atrium(2D)3.1 (1.6-4.0cm) IVSd1.4 (0.7-1.1cm)Aortic Root(2D)2.0 (2.0-3.7cm) LVDd4.0 (3.9-5.9cm)LVOT Diameter1.6 (1.8-2.4cm) PWd1.4 (0.7-1.1cm)LVDs2.4 (2.5-4.0cm) FS (%) 40.8 %SV51.1 ml Aortic Valve AoV Peak Jaziel.180.4cm/sAoV VTI47.8cm AO Peak GR.13.0mmHgLVOT Peak Jaziel.93.1cm/s LVOT VTI 27.32cmAO Mean GR.7mmHg RYAN (VMAX)1.96md3VTO (VTI)1.14cm2 Mitral Valve MV E Iflscosr706.2cm/sMV E Peak Gr.127mmHg MV DECEL [id number] A Hpfdyhqa217.8cm/s E/A Ratio1.5 Tricuspid Valve TR P. [id number]/sTR Peak Gr.42mmHg Pulmonary Vein S1 Xmiwwppf30.4cm/sD2 Ssyaeajo22.1cm/s LEFT VENTRICLE The left ventricle is normal size. There is mild concentric left ventricular hypertrophy. The left ve ntricular systolic function is normal and the ejection fraction is within normal range. LV ejection f raction is 60-65%. There is normal LV segmental wall motion. The left ventricular diastolic function and filling is normal for age. RIGHT VENTRICLE The right ventricle is normal size. The right ventricular systolic function is normal. ATRIA The left atrium size is normal. The right atrium size is normal. The interatrial septum is intact wit h no evidence for an atrial septal defect or patent foramen ovale as noted on 2-D or Doppler imaging. AORTIC VALVE The aortic valve is mildly sclerotic. Doppler and Color Flow revealed no significant aortic regurgita tion. There is no significant aortic valvular stenosis. There is no aortic valvular vegetation. MITRAL VALVE Mitral annular calcification is mild to moderate. The mitral valve is calcified but opens well. There is no evidence of mitral valve prolapse. There is no mitral valve stenosis. Doppler and Color-flow r evealed mild to moderate mitral regurgitation. TRICUSPID VALVE The tricuspid valve leaflets are thickened , but open well. Doppler and Color Flow revealed trace tri cuspid regurgitation. There is no tricuspid valve prolapse or vegetation. There is no tricuspid valve stenosis. PULMONIC VALVE The pulmonary valve is normal in structure and function. Doppler and Color Flow revealed no pulmonic valvular regurgitation. There is no pulmonic valvular stenosis. GREAT VESSELS The aortic root is normal in size. The IVC is enlarged in size and collapses <50% with inspiration. PERICARDIAL EFFUSION There is small left pleural effusion. There is no evidence of significant pericardial effusion. Critical Notification Critical Value: No <Conclusion> The left ventricle is normal size. The left ventricular systolic function is normal and the ejection fraction is within normal range. LV ejection fraction is 60-65%. There is mild concentric left ventricular hypertrophy. There is no significant aortic valvular stenosis. Doppler and Color Flow revealed no significant aortic regurgitation. Doppler and Color-flow revealed mild to moderate mitral regurgitation. Doppler and Color Flow revealed trace tricuspid regurgitation. There is no evidence of significant pericardial effusion. Signed by : Conrad Mtz MD Electronically Approved : 01/08/2018 16:05:41
[2018-01-08] MEDS: METOPROLOL TART IMMED RELEASE 25 MG TABLET PO SCH (21:11)
[2018-01-08] MEDS: ENOXAPARIN 30 MG/0.3 ML DISP.SYRIN. SQ SCH (22:00)
[2018-01-08 22:09] LABS: CALCIUM 8.3 mg/dL (8.5-10.1); CREATININE 1.5 mg/dL (0.6-1.0); GFR 33.5; MAGNESIUM 1.4 mg/dL (1.8-2.4); POTASSIUM 3.2 mmol/L (3.5-5.1)
[2018-01-09] VITALS (19 sets, daily range): BP systolic 138–193; BP diastolic 46–75
--- NOTE | 2018-01-09 01:00 | PN ---
DATE: 01/08/2018 SUBJECTIVE: The patient is a 77-year-old female patient, resident at [facility], who was admitted with marked respiratory distress with marked hypoxia with oxygen saturation of 70% on room air, started on oxygen and went up to 90. She was admitted recently to [facility] with great toe amputation and developed pneumonia and renal insufficiency. She apparently was positive for influenza A. She was started on BiPAP machine as her blood gas showed that she was in acute hypoxic hypercapnic respiratory failure and IV antibiotic for healthcare-associated pneumonia. By the time I saw her this afternoon, she looked much better. She is slightly propped up in bed, no apparent distress. She was able to talk and finish sentences and feeling generally much improved. PHYSICAL EXAMINATION: GENERAL: When I examined her, she was pale, but no jaundice, cyanosis, or thyromegaly. No jugular venous distention. No limb edema. VITAL SIGNS: Her heart rate was 67, blood pressure 174/54, temperature was 97.5, respiratory rate was 20, and oxygen saturation was 96% on 3 liters of oxygen via nasal cannula. HEAD, EYES, EARS, NOSE AND THROAT: Showed normocephalic, atraumatic. NECK: Supple. HEART: Showed normal first and second sounds. No gallop, rub or murmur. CHEST: Clear to auscultation and shows central trachea, equally reduced expansion, reduced air entry, vesicular breath sounds with bilateral scattered rhonchi, few crepitation bilaterally. ABDOMEN: Distended, soft, nontender. No guarding or rigidity. No organomegaly. Hernial orifice intact. Bowel sounds normal. NEUROLOGIC: She is definitely more awake, alert, responding appropriately. Cranial nerves intact. She moves extremities without difficulty. She has bilateral transmetatarsal amputation. Her intake over the last 24 hours was 770, output was 1100. LABORATORY DATA: Her lab work this morning showed a white cell count of 10,400, hemoglobin 10, hematocrit 33, MCV 88 and a platelet count of 225,000. Her blood gases showed a pH of 7.44, her pCO2 of 48, pO2 of 77, bicarbonate 33, oxygen saturation was 96% on FiO2 of 30%. Her prothrombin time was 11.3, INR 1.1. Her chemistry showed a serum sodium of 146, potassium 3.9, chloride 107, bicarbonate 30, anion gap of 9, BUN 30, creatinine 1.5, estimated GFR was 33 mL per minute. Her glucose was 211, calcium was 8.7. Total bilirubin, AST, ALT, alkaline phosphatase were normal. Total protein was 6.4, albumin was 2.3. Urinalysis showed that there more than 40 wbc's, more than moderate amount of bacteria and her influenza A was positive. ASSESSMENT: 1. The patient has influenza A. 2. Pneumonia, for which she is on vancomycin and Zosyn. 3. Chronic obstructive pulmonary disease exacerbation. 4. Extremely high blood pressure, for which is now on a Cardene drip. 5. She also seemed to have acute heart failure. PLAN: My plan is to continue with all this medication. Continue with nebulized albuterol and Atrovent. Repeat all her lab work tomorrow. CHEPE MADERA MD DR: YORDAN/imani JOB#: [id number] / [id number]
[2018-01-09] MEDS: ENOXAPARIN 30 MG/0.3 ML DISP.SYRIN. SQ SCH (02:12)
[2018-01-09] MEDS ORDERED: MAGNESIUM SULFATE 1GM 100 ML IV ONE (02:30)
[2018-01-09] MEDS: PIPERACILLIN/TAZOBACTAM 3.375 GM in IV NORMAL SALINE 50ML 50 ML IV SCH ×3 (02:52→16:00)
[2018-01-09] MEDS ORDERED: POTASSIUM CHLORIDE 20 MEQ TABLET.ER. PO ONE (03:15)
[2018-01-09] MEDS ORDERED: MAGNESIUM SULFATE 2GM 50 ML IV ONE (03:30)
[2018-01-09] MEDS: IPRATRPIUM/ALBUTEROL 0.5/2.5MG 3 ML NEBU. NEB SCH ×2 (05:57→10:47)
[2018-01-09 06:17] LABS: HEMATOCRIT 32.1 % (36.0-47.0); HEMOGLOBIN 9.9 g/dL (12.0-15.5); RED BLOOD COUNT 3.64 x10^6/uL (3.50-5.40); RED CELL DISTRIBUTION WIDTH 17.3 % (11.5-14.5); WHITE BLOOD COUNT 12.7 x10^3/uL (4.0-11.0)
[2018-01-09 06:37] LABS: ALBUMIN 2.6 g/dL (3.4-5.0); ALBUMIN/GLOBULIN RATIO 0.6 (1.0-1.7); CREATININE 1.6 mg/dL (0.6-1.0); GFR 31.1; POTASSIUM 3.9 mmol/L (3.5-5.1); TOTAL BILIRUBIN 0.7 mg/dL (0.2-1.0)
[2018-01-09] MEDS: ISOSORBIDE MONONITRATE ER 30 MG TAB.ER.24H PO SCH (07:34)
[2018-01-09] MEDS: guaiFENesin DM 600/30MG 1 TAB TAB.ER.12H PO SCH (07:34)
[2018-01-09] MEDS: METOPROLOL TART IMMED RELEASE 25 MG TABLET PO SCH (07:34)
[2018-01-09] MEDS: LACTOBACILLUS RHAMNOSUS GG 1 CAPSULE. PO SCH (07:34)
[2018-01-09] MEDS: OSELTAMIVIR 75 MG CAPSULE PO SCH (07:34)
[2018-01-09] MEDS: INSULIN ASPART 300 UNITS/3 ML INSULN.PEN SQ SCH ×2 (07:35→12:00)
[2018-01-09] MEDS ORDERED: FUROSEMIDE 40 MG/4 ML VIAL IVP SCH (09:00)
--- NOTE | 2018-01-09 09:06 | PDOC ---
PROGRESS NOTES Diagnosis Problem Problems Medical Problems: (1) Influenza A Status: Acute (2) Sepsis Status: Acute Assessment Problems Medical Problems: (1) Influenza A Status: Acute (2) Sepsis Status: Acute 1. troponin elevation - likely demand related. Normal LVEF and wall motion by echo. Continue medical mgmt and consider MPI when medical problems resolved. 2. accelerated hypertension - Continue beta florence, hydralazine and nitrates. Titrate off Cardene drip. 3. NSVT - Mg and K+ replaced. maintain within normal limits. Continue beta florence. 4. acute on chronic hypercapnic, hypoxic respiratory failure multifactorial - mgmt of pneumonia and influenza as per PCP. Repeat CXR and ABG this am. 5. acute diastolic, heart failure - repeat CXR. She does not appear overtly volume overloaded this am. 6. Renal insufficiency - Mild. Await records from [facility] to establish baseline. Consider addition of ACEI. 7. Diabetes - per PCP Problems: Subjective Off BiPap. Remains visibly dyspneic. Reports feeling better overall. No chest pain. No palpitations. Objective Vital Signs Date Time Temp Pulse Resp B/P (MAP) Pulse Ox O2 Delivery O2 Flow Rate FiO2 01/09/18 08:47 70 20 154/56 (88) 94 BiPAP/CPAP 30.0 01/09/18 03:00 98.6 Intake and Output 01/09/18 07:00 Intake Total 2470 ml Output Total 1550 ml Balance 920 ml Intake Oral 1650 ml IV Total 820 ml Output Urine Total 1550 ml # Bowel Movements 2 Abdomen: Normal bowel sounds, Soft Heart: Regular rate, Normal S1, Normal S2, Other (+systolic murmur) Extremities: No cyanosis, Other (trace edema) General: Alert, Oriented X3, Cooperative, mild distress HEENT: Atraumatic, EOMI Lungs: Other (coarse with expiratory wheezing) Neuro: Normal speech, Strength at 5/5 X4 ext Psych/Mental Status: Mental status NL, Mood NL Review of Relevant I have reviewed the following items lore (where applicable) has been applied. Labs Laboratory Tests Test 01/07/18 11:55 01/07/18 12:10 01/07/18 12:20 01/07/18 13:05 Blood Gas pH 7.33 (7.35-7.45) Blood Gas PCO2 62 mmHg (35-45) Blood Gas PO2 69 mmHg (71-100) Blood Gas HCO3 32 mmol/L (22-26) Arterial Bld O2 Saturation (Calc) 92 % (92-99) FiO2 32 % White Blood Count 10.4 x10^3/uL (4.0-11.0) Red Blood Count 3.77 x10^6/uL (3.50-5.40) Hemoglobin 10.4 g/dL (12.0-15.5) Hematocrit 33.4 % (36.0-47.0) Mean Corpuscular Volume 88 fL (79-100) Mean Corpuscular Hemoglobin 28 pg (25-35) Mean Corpuscular Hemoglobin Concent 31 g/dL (31-37) Red Cell Distribution Width 17.5 % (11.5-14.5) Platelet Count 225 x10^3/uL (140-400) Neutrophils (%) (Auto) 94 % (31-73) Lymphocytes (%) (Auto) 2 % (24-48) Monocytes (%) (Auto) 4 % (0-9) Eosinophils (%) (Auto) 0 % (0-3) Basophils (%) (Auto) 0 % (0-3) Neutrophils # (Auto) 9.7 x10^3uL (1.8-7.7) Lymphocytes # (Auto) 0.2 x10^3/uL (1.0-4.8) Monocytes # (Auto) 0.4 x10^3/uL (0.0-1.1) Eosinophils # (Auto) 0.0 x10^3/uL (0.0-0.7) Basophils # (Auto) 0.0 x10^3/uL (0.0-0.2) Prothrombin Time 11.3 SEC (9.4-11.4) Prothromb Time International Ratio 1.1 (0.9-1.1) Sodium Level 138 mmol/L (136-145) Potassium Level 6.1 mmol/L (3.5-5.1) Chloride Level 101 mmol/L (98-107) Carbon Dioxide Level 33 mmol/L (21-32) Anion Gap 4 (6-14) Blood Urea Nitrogen 28 mg/dL (7-20) Creatinine 1.6 mg/dL (0.6-1.0) Estimated GFR (Cockcroft-Gault) 31.1 BUN/Creatinine Ratio 18 (6-20) Glucose Level 282 mg/dL (70-99) Lactic Acid Level 2.3 mmol/L (0.4-2.0) Calcium Level 9.6 mg/dL (8.5-10.1) Total Bilirubin 0.4 mg/dL (0.2-1.0) Aspartate Amino Transf (AST/SGOT) 28 U/L (15-37) Alanine Aminotransferase (ALT/SGPT) 27 U/L (14-59) Alkaline Phosphatase 86 U/L (46-116) Creatine Kinase 32 U/L (26-192) Creatine Kinase MB (Mass) 0.8 ng/mL (0.0-3.6) Creatine Kinase MB Relative Index 2.5 % (0-4) Troponin I Quantitative 0.060 ng/mL (0-0.055) CK-Vma-S-Type Natriuretic Peptide 8829 pg/mL (0-449) Total Protein 7.2 g/dL (6.4-8.2) Albumin 2.6 g/dL (3.4-5.0) Albumin/Globulin Ratio 0.6 (1.0-1.7) Influenza Type A (Rapid) Positive (NEGATIVE) Influenza Type B (Rapid) Negative (NEGATIVE) Urine Collection Type U cath Urine Color Yellow Urine Clarity Cloudy Urine pH 5.0 Urine Specific [place] 1.025 Urine Protein >100 mg/dl (NEG-TRACE) Urine Glucose (UA) 100 mg/dL (NEG) Urine Ketones (Stick) Neg mg/dL (NEG) Urine Blood Mod (NEG) Urine Nitrite Neg (NEG) Urine Bilirubin Neg (NEG) Urine Urobilinogen Dipstick 0.2 mg/dL (0.2 mg/dL) Urine Leukocyte Esterase Trace (NEG) Urine RBC 1-2 /HPF (0-2) Urine WBC >40 /HPF (0-4) Urine Squamous Epithelial Cells Few /LPF Urine Amorphous Sediment Present /HPF Urine Bacteria Mod /HPF (0-FEW) Test 01/07/18 15:54 01/07/18 18:45 01/07/18 18:58 01/07/18 20:55 Sodium Level 143 mmol/L (136-145) Potassium Level 4.5 mmol/L (3.5-5.1) Chloride Level 105 mmol/L (98-107) Carbon Dioxide Level 34 mmol/L (21-32) Anion Gap 4 (6-14) Blood Urea Nitrogen 27 mg/dL (7-20) Creatinine 1.5 mg/dL (0.6-1.0) Estimated GFR (Cockcroft-Gault) 33.5 Glucose Level 184 mg/dL (70-99) Lactic Acid Level 1.3 mmol/L (0.4-2.0) Calcium Level 8.9 mg/dL (8.5-10.1) Blood Gas pH 7.26 (7.35-7.45) Blood Gas PCO2 69 mmHg (35-45) Blood Gas PO2 66 mmHg (71-100) Blood Gas HCO3 31 mmol/L (22-26) Arterial Bld O2 Saturation (Calc) 88 % (92-99) FiO2 35 % Troponin I Quantitative 0.102 ng/mL (0-0.055) Glucose (Fingerstick) 237 mg/dL (70-99) Test 01/07/18 21:50 01/08/18 01:00 01/08/18 04:00 01/08/18 05:53 Blood Gas pH 7.34 (7.35-7.45) Blood Gas PCO2 56 mmHg (35-45) Blood Gas PO2 68 mmHg (71-100) Blood Gas HCO3 31 mmol/L (22-26) Arterial Bld O2 Saturation (Calc) 93 % (92-99) FiO2 30 % Troponin I Quantitative 0.090 ng/mL (0-0.055) Nasal Screen MRSA (PCR) Negative (Negative) Sodium Level 146 mmol/L (136-145) Potassium Level 3.9 mmol/L (3.5-5.1) Chloride Level 107 mmol/L (98-107) Carbon Dioxide Level 30 mmol/L (21-32) Anion Gap 9 (6-14) Blood Urea Nitrogen 30 mg/dL (7-20) Creatinine 1.5 mg/dL (0.6-1.0) Estimated GFR (Cockcroft-Gault) 33.5 BUN/Creatinine Ratio 20 (6-20) Glucose Level 253 mg/dL (70-99) Calcium Level 8.7 mg/dL (8.5-10.1) Total Bilirubin 0.5 mg/dL (0.2-1.0) Aspartate Amino Transf (AST/SGOT) 61 U/L (15-37) Alanine Aminotransferase (ALT/SGPT) 49 U/L (14-59) Alkaline Phosphatase 116 U/L (46-116) Total Protein 6.4 g/dL (6.4-8.2) Albumin 2.3 g/dL (3.4-5.0) Albumin/Globulin Ratio 0.6 (1.0-1.7) Triglycerides Level 72 mg/dL (0-150) Cholesterol Level 135 mg/dL (0-200) LDL Cholesterol, Calculated 63 mg/dL (0-100) VLDL Cholesterol, Calculated 14 mg/dL (0-40) Non-HDL Cholesterol Calculated 77 mg/dL (0-129) HDL Cholesterol 58 mg/dL (40-60) Cholesterol/HDL Ratio 2.0 Test 01/08/18 08:10 01/08/18 12:09 01/08/18 16:56 01/08/18 21:21 Blood Gas pH 7.44 (7.35-7.45) Blood Gas PCO2 48 mmHg (35-45) Blood Gas PO2 77 mmHg (71-100) Blood Gas HCO3 33 mmol/L (22-26) Arterial Bld O2 Saturation (Calc) 96 % (92-99) FiO2 30 % Glucose (Fingerstick) 211 mg/dL (70-99) 199 mg/dL (70-99) 247 mg/dL (70-99) Test 01/08/18 21:50 01/09/18 05:45 Sodium Level 146 mmol/L (136-145) 147 mmol/L (136-145) Potassium Level 3.2 mmol/L (3.5-5.1) 3.9 mmol/L (3.5-5.1) Chloride Level 105 mmol/L (98-107) 105 mmol/L (98-107) Carbon Dioxide Level 31 mmol/L (21-32) 29 mmol/L (21-32) Anion Gap 10 (6-14) 13 (6-14) Blood Urea Nitrogen 31 mg/dL (7-20) 31 mg/dL (7-20) Creatinine 1.5 mg/dL (0.6-1.0) 1.6 mg/dL (0.6-1.0) Estimated GFR (Cockcroft-Gault) 33.5 31.1 Glucose Level 246 mg/dL (70-99) 304 mg/dL (70-99) Calcium Level 8.3 mg/dL (8.5-10.1) 9.0 mg/dL (8.5-10.1) Magnesium Level 1.4 mg/dL (1.8-2.4) 2.4 mg/dL (1.8-2.4) White Blood Count 12.7 x10^3/uL (4.0-11.0) Red Blood Count 3.64 x10^6/uL (3.50-5.40) Hemoglobin 9.9 g/dL (12.0-15.5) Hematocrit 32.1 % (36.0-47.0) Mean Corpuscular Volume 88 fL (79-100) Mean Corpuscular Hemoglobin 27 pg (25-35) Mean Corpuscular Hemoglobin Concent 31 g/dL (31-37) Red Cell Distribution Width 17.3 % (11.5-14.5) Platelet Count 260 x10^3/uL (140-400) BUN/Creatinine Ratio 19 (6-20) Total Bilirubin 0.7 mg/dL (0.2-1.0) Aspartate Amino Transf (AST/SGOT) 43 U/L (15-37) Alanine Aminotransferase (ALT/SGPT) 47 U/L (14-59) Alkaline Phosphatase 107 U/L (46-116) Total Protein 7.0 g/dL (6.4-8.2) Albumin 2.6 g/dL (3.4-5.0) Albumin/Globulin Ratio 0.6 (1.0-1.7) Microbiology 01/07/18 Blood Culture - Preliminary, Resulted NO GROWTH AFTER 1 DAY 01/07/18 Urine Culture - Preliminary, Resulted 01/07/18 Urine Culture Result 1 (RADHA) - Preliminary, Resulted Medications Current Medications Methylprednisolone Sodium Succinate (SOLU-Medrol 125MG VIAL) 125 mg 1X ONCE IV Last administered on 01/07/18at 12:34; Start 01/07/18 at 12:45; Stop 01/07/18 at 12:47; Status DC Albuterol/ Ipratropium (Duoneb) 3 ml 1X ONCE NEB Last administered on at 12:42; Start 01/07/18 at 12:45; Stop 01/07/18 at 12:47; Status DC Albuterol/ Ipratropium (Duoneb) 3 ml STK-MED ONCE .ROUTE ; Start 01/07/18 at 12: 27; Stop 01/07/18 at 12:28; Status DC Albuterol Sulfate (Ventolin) 10 mg 1X ONCE CONT NEB Last administered on at 13:55; Start 01/07/18 at 13:30; Stop 01/07/18 at 13:31; Status DC Sodium Polystyrene Sulfonate (Kayexalate) 15 gm 1X ONCE PO Last administered on 01/07/18at 14:31; Start 01/07/18 at 13:30; Stop 01/07/18 at 13:31; Status DC Dextrose 25 gm 1X ONCE IV ; Start 01/07/18 at 13:30; Stop 01/07/18 at 13:31; Status DC Insulin Human Regular (NovoLIN R) 10 unit 1X ONCE IV Last administered on 01/07at 14:10; Start 01/07/18 at 13:30; Stop 01/07/18 at 13:31; Status DC Sodium Bicarbonate 50 meq 1X ONCE IV Last administered on 01/07/18at 13:46; Start 01/07/18 at 13:30; Stop 01/07/18 at 13:31; Status DC Oseltamivir Phosphate (Tamiflu) 75 mg 1X ONCE PO Last administered on at 13:43; Start 01/07/18 at 13:45; Stop 01/07/18 at 13:46; Status DC Piperacillin Sod/ Tazobactam Sod 3.375 gm/Sodium Chloride 50 ml @ 100 mls/hr 1X ONCE IV Last administered on 01/07/18at 14:30; Start 01/07/18 at 13:45; Stop 01/07/18 at 14:14; Status DC Vancomycin HCl 1 gm/Sodium Chloride 250 ml @ 250 mls/hr 1X ONCE IV ; Start 10/14 at 13:45; Stop 01/07/18 at 14:44; Status DC Sodium Chloride 1,000 ml @ 1,000 mls/hr 1X ONCE IV Last administered on at 13:51; Start 01/07/18 at 13:15; Stop 01/07/18 at 14:14; Status DC Sodium Chloride 50 ml @ As Directed STK-MED ONCE .ROUTE ; Start 01/07/18 at 13: 35; Stop 01/07/18 at 13:36; Status DC Piperacillin Sod/ Tazobactam Sod (Zosyn) 3.375 gm STK-MED ONCE IV ; Start at 13:35; Stop 01/07/18 at 13:36; Status DC Vancomycin HCl 1 gm STK-MED ONCE .ROUTE ; Start 01/07/18 at 13:36; Stop at 13:37; Status DC Sodium Chloride 1,000 ml @ 75 mls/hr [id number] IV Last administered on at 08:04; Start 01/07/18 at 13:54; Stop 01/08/18 at 13:53; Status DC Piperacillin Sod/ Tazobactam Sod (Zosyn Per Pharmacy) 1 each PRN DAILY PRN MC SEE COMMENTS; Start 01/07/18 at 15:00 Vancomycin HCl (Vanco Per Pharmacy) 1 each PRN DAILY PRN MC SEE COMMENTS; Start 01/07/18 at 15:00 Oseltamivir Phosphate (Tamiflu) 75 mg BID PO Last administered on 01/09/18at 07: 34; Start 01/07/18 at 21:00; Stop 01/12/18 at 20:59 Acetaminophen (Tylenol) 500 mg PRN Q6HRS PRN PO PAIN / TEMP; Start 01/07/18 at 15:00; Stop 01/08/18 at 08:56; Status DC Piperacillin Sod/ Tazobactam Sod 3.375 gm/Sodium Chloride 50 ml @ 100 mls/hr Q6H IV Last administered on 01/09/18at 07:36; Start 01/07/18 at 21:00 Vancomycin HCl 2 gm/Sodium Chloride 500 ml @ 250 mls/hr 1X ONCE IV Last administered on 01/07/18at 15:35; Start 01/07/18 at 16:00; Stop 01/07/18 at 17:59 ; Status DC Vancomycin HCl 1.25 gm/Sodium Chloride 250 ml @ 167 mls/hr Q24H IV Last administered on 01/08/18at 17:15; Start 01/08/18 at 16:00 Vancomycin HCl 1 each 1X ONCE MC ; Start 01/09/18 at 15:30; Stop 01/09/18 at 15 :31 Labetalol HCl (Normodyne) 5 mg PRN Q6HRS PRN IVP HYPERTENSION, SEE COMMENTS Last administered on 01/07/18 23:05; Start 01/07/18 at 19:30 Labetalol HCl (Normodyne) 10 mg PRN Q6HRS PRN IVP HYPERTENSION, SEE COMMENTS Last administered on 01/08/18 06:21; Start 01/07/18 at 19:30 Insulin Aspart (NovoLOG) 0-7 UNITS TIDACHC SQ Last administered on 01/09/18 07 :35; Start 01/07/18 at 21:00 Dextrose 12.5 gm PRN Q15MIN PRN IV SEE COMMENTS; Start 01/07/18 at 19:30 Lactobacillus Rhamnosus (Culturelle) 1 cap BID PO Last administered on 07:34; Start 01/07/18 at 21:00 Fentanyl Citrate (Fentanyl 2ml Vial) 25 mcg 1X ONCE IV Last administered on 20:30; Start 01/07/18 at 20:30; Stop 01/07/18 at 20:31; Status DC Albuterol/ Ipratropium (Duoneb) 3 ml RTQID NEB Last administered on 01/09/18 05:57; Start 01/07/18 at 21:15 Guaifenesin (MUCINEX ER with DM) 1 tab BID PO Last administered on 01/09/18 07 :34; Start 01/07/18 at 21:30 Fentanyl Citrate (Fentanyl 2ml Vial) 25 mcg PRN Q4HRS PRN IV PAIN Last administered on 01/08/18at 00:37; Start 01/07/18 at 21:30 Enoxaparin Sodium (Lovenox) 30 mg Q24H SQ Last administered on 01/07/18 22:01 ; Start 01/07/18 at 22:00 Acetaminophen (Tylenol) 1,000 mg PRN Q6HRS PRN PO PAIN / TEMP Last administered on 01/08/18 21:11; Start 01/08/18 at 09:00 Hydralazine HCl (Apresoline) 10 mg PRN Q4HRS PRN IV ELEVATED BP, SEE COMMENTS Last administered on 01/08/18 09:33; Start 01/08/18 at 09:00 Furosemide (Lasix) 20 mg STK-MED ONCE .ROUTE Last administered on 01/08/18at 09: 34; Start 01/08/18 at 09:10; Stop 01/08/18 at 09:11; Status DC Hydralazine HCl (Apresoline) 50 mg BID PO Last administered on 01/09/18at 07:38 ; Start 01/08/18 at 21:00 Nicardipine HCl 50 mg/Sodium Chloride 270 ml @ 0 mls/hr CONT PRN IV SEE I/O RECORD Last administered on 01/09/18at 07:52; Start 01/08/18 at 10:00 Albuterol Sulfate (Ventolin) 2.5 mg PRN Q2HR PRN NEB SHORTNESS OF BREATH; Start 01/08/18 at 13:30 Furosemide (Lasix) 20 mg 1X ONCE IVP ; Start 01/08/18 at 14:00; Stop 01/08/18 at 14:01; Status DC Furosemide (Lasix) 40 mg DAILY IVP Last administered on 01/09/18at 07:33; Start 01/09/18 at 09:00 Isosorbide Mononitrate (Imdur) 60 mg DAILY PO Last administered on 01/09/18at 07 :34; Start 01/08/18 at 13:45 Metoprolol Tartrate (Lopressor) 25 mg BID PO Last administered on 01/09/18at 07: 34; Start 01/08/18 at 21:00 Magnesium Sulfate/ Dextrose 100 ml @ 100 mls/hr 1X ONCE IV ; Start 01/09/18 at 02:30; Stop 01/09/18 at 02:44; Status DC Magnesium Sulfate 50 ml @ 25 mls/hr 1X ONCE IV Last administered on 01/09/18at 03:36; Start 01/09/18 at 03:30; Stop 01/09/18 at 05:29; Status DC Potassium Chloride (Klor-Con) 40 meq 1X ONCE PO Last administered on at 03:35; Start 01/09/18 at 03:15; Stop 01/09/18 at 03:19; Status DC Active Scripts Active Reported Aspirin 81 Mg Tab.chew 81 Mg PO DAILY Amlodipine Besylate 5 Mg Tablet 1 Tab PO DAILY Vitals/I & O Vital Sign - Last 24 Hours 01/08/18 01/08/18 01/08/1818 09:33 09:44 10:00 10:30 Temp 97.5 Pulse 84 73 76 73 Resp 20 20 20 B/P (MAP) 216/69 (118) 218/61 (113) 181/72 (108) Pulse Ox 96 96 96 O2 Delivery BiPAP/CPAP BiPAP/CPAP BiPAP/CPAP O2 Flow Rate 10.0 10.0 10.0 01/08/18 01/08/18 01/08/18 01/08/18 11:00 11:53 12:03 13:00 Pulse 67 80 Resp 20 20 B/P (MAP) 174/54 (94) 163/63 (96) Pulse Ox 96 96 96 O2 Delivery Bi-pap Nasal Cannula Nasal Cannula Nasal Cannula O2 Flow Rate 10.0 3.5 3.0 3.0 01/08/18 01/08/18 01/08/18 01/08/18 13:49 14:30 15:30 16:00 Pulse 88 77 75 Resp 20 20 B/P (MAP) 175/59 (97) 166/55 (92) Pulse Ox 96 96 O2 Delivery Nasal Cannula Nasal Cannula Bi-pap O2 Flow Rate 3.0 3.0 10.0 01/08/18 01/08/18 01/08/18 01/08/18 16:43 17:34 18:24 18:30 Temp 97.9 Pulse 75 73 Resp 20 20 B/P (MAP) 168/55 (92) 162/55 (90) Pulse Ox 98 96 96 O2 Delivery Nasal Cannula Nasal Cannula Bi-pap Nasal Cannula O2 Flow Rate 3.5 3.0 10.0 3.0 01/08/18 01/08/18 01/08/18 01/08/18 18:48 20:00 20:00 20:44 Temp 98.6 Pulse 76 Resp 20 B/P (MAP) 159/55 (89) Pulse Ox 99 98 O2 Delivery Bi-pap Nasal Cannula Nasal Cannula O2 Flow Rate 10.0 3.0 3.5 01/08/18 01/08/18 01/08/18 01/08/18 21:00 21:10 21:11 22:00 Pulse 78 76 76 74 Resp 20 20 B/P (MAP) 144/83 (103) 159/55 159/55 140/56 (84) Pulse Ox 98 99 O2 Delivery Nasal Cannula Nasal Cannula O2 Flow Rate 3.0 3.0 01/08/18 01/08/18 01/09/18 01/09/18 23:00 23:59 00:01 02:00 Pulse 72 72 78 Resp 20 20 20 B/P (MAP) 151/50 (83) 140/61 (87) 142/50 (80) Pulse Ox 98 98 97 O2 Delivery Room Air Bi-pap Room Air Room Air O2 Flow Rate 3.0 10.0 3.0 3.0 01/09/18 01/09/18 01/09/18 01/09/18 03:00 04:00 04:00 05:00 Temp 98.6 Pulse 80 82 86 Resp 18 20 20 B/P (MAP) 155/61 (92) 156/46 (82) 166/74 (104) Pulse Ox 97 98 96 O2 Delivery Nasal Cannula Nasal Cannula Bi-pap Nasal Cannula O2 Flow Rate 3.0 3.0 10.0 3.0 01/09/18 01/09/18 01/09/18 01/09/18 05:57 06:00 07:00 07:21 Pulse 86 86 Resp 20 20 B/P (MAP) 144/65 (91) 138/62 (87) Pulse Ox 95 98 98 O2 Delivery Nasal Cannula Nasal Cannula Nasal Cannula Nasal Cannula O2 Flow Rate 3.5 3.0 3.0 3.0 01/09/18 01/09/18 01/09/18 01/09/18 07:34 07:34 07:38 08:00 Pulse 88 88 100 79 Resp 20 B/P (MAP) 174/57 141/56 (84) Pulse Ox 94 O2 Delivery BiPAP/CPAP 01/09/18 08:47 Pulse 70 Resp 20 B/P (MAP) 154/56 (88) Pulse Ox 94 O2 Delivery BiPAP/CPAP O2 Flow Rate 30.0 Intake and Output 01/08/18 01/08/18 01/09/18 15:00 23:00 07:00 Intake Total 920 ml 1330 ml 220 ml Output Total 600 ml 400 ml 550 ml Balance 320 ml 930 ml -330 ml KEILA LAZO APRN Jan 09, 2018 09:06
--- NOTE | 2018-01-09 10:20 | RAD ---
CHEST AP ONLY History: Increased dyspnea Comparison: 01/08/2018 Findings: Single view of the chest is submitted. There is persistent probable small left pleural effusion although likely somewhat larger, adjacent opacity with increased obscuration of the left hemidiaphragm. There is also suspected trace right pleural effusion. There is hazy bibasilar airspace opacity greater on the left. Cardiac silhouette is stable. There is no pneumothorax. Impression: 1. Small pleural effusion is probably somewhat larger, increased obscuration of the left hemidiaphragm which may be due to component of adjacent infiltrate or atelectasis. There is also suspected very small right pleural effusion. Electronically signed by: Isaac Savage MD (01/09/2018 10:17 AM) [id number]
[2018-01-09 10:25] LABS: BGAS PH 7.41 (7.35-7.45)
[2018-01-09] MEDS ORDERED: LORazepam 2 MG/ML VIAL IV PRN (10:30)
[2018-01-09] MEDS ORDERED: LISINOPRIL 5 MG TABLET. PO SCH (11:15)
[2018-01-09] MEDS ORDERED: methylPREDNISolone SOD SUCC PF 125 MG/2 ML VIAL. IV SCH (14:00)
[2018-01-09] MEDS ORDERED: methylPREDNISolone SOD SUCC PF 125 MG/2 ML VIAL. IV ONE (14:00)
[2018-01-09] MEDS ORDERED: NYSTATIN TOPICAL POWDER 15GM BOTTLE. TP SCH (21:00)
--- NOTE | 2018-01-09 21:00 | DS ---
DATE OF DISCHARGE: 01/09/2018 DISCHARGE SUMMARY HISTORY OF PRESENT ILLNESS AND HOSPITAL COURSE: The patient is a 77-year-old female patient, a resident at [facility] where she was admitted after she underwent amputation of her right big toe. After amputation of her right big toe, she was noted to be extremely hypoxic and was in respiratory distress and was recently hospitalized at [facility] for right great toe amputation and developed pneumonia and renal insufficiency. As they had no beds, she was seen in the Emergency Room of [facility], was admitted with healthcare-associated pneumonia, acute hypoxic respiratory failure and COPD exacerbation, congestive heart failure, and poorly controlled diabetes. She was found also to have influenza A and sepsis. She was treated with IV antibiotics, diuretics. She also has hypertensive urgency for which she was on Cardene drip and patient continued to be severely short of breath. Her kidney function has steadily worsened and continued to be extremely ____ tightness and wheezing and it was felt that the patient would benefit from transfer to [facility] and to consult the title specialist, grinder carbon plant, Infectious Disease as well as wound care team and Vascular surgeon to assist with her management. PHYSICAL EXAMINATION: GENERAL: When I saw her this afternoon, she was clearly mildly tachypneic and pale, but no jaundice, cyanosis, or thyromegaly. No jugular venous distension. No limb edema. VITAL SIGNS: Her heart rate was 70, blood pressure was 154/48, temperature was 98.7, respiratory rate was 28, and oxygen saturation was 95% on 3 liters of oxygen. HEAD, EYES, EARS, NOSE, AND THROAT: Normocephalic, atraumatic. NECK: Supple. HEART: Showed normal first and second heart sounds with no gallop, rub, or murmur. CHEST: Shows central trachea, equally reduced expansion, reduced air entry sounds with diffuse bilateral scattered rhonchi, few bilateral crepitation mostly posteriorly. ABDOMEN: Slightly distended, soft, nontender. No guarding or rigidity. No organomegaly. Hernial orifice intact. Bowel sounds normal. NEUROLOGIC: She was awake, alert, responding appropriately. All cranial nerves intact. She moves extremities without difficulty, although she is mostly bedbound. 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 Her intake today was 2470, output was 1550. LABORATORY DATA: This morning showed a serum sodium of 147, potassium 3.9, chloride 105, bicarbonate 29, anion gap of 13, BUN 31, creatinine 1.6, estimated GFR was 51 mL per minute. Her glucose was high at 304, calcium was 9, magnesium was 2.4. Total bilirubin, AST, ALT, alkaline phosphatase were normal. Total protein 7, albumin 2.6. Her white cell count was 12,700, hemoglobin 10, hematocrit 32, MCV 88, and platelet count 260,000. Her blood gases this morning showed a pH of 7.41, pCO2 of 47, pO2 of 73, bicarbonate 29, oxygen saturation was 95% on FiO2 of 30%. Her prothrombin time was 11.3, INR 1.1. Urinalysis showed more than 40 WBCs, moderate amount of bacteria. Her nasal screen for MRSA by PCR was negative. Her influenza A was positive. The patient was treated with bronchodilators, IV antibiotics, diuretics. She was seen in consultation by the Cardiology team, but the patient's kidney function continued to deteriorate and she was admitted recently to [facility] where kidney function has worsened and she has previous history of requiring hemodialysis and given the severe bronchospasm, we did start her on steroids. Apparently, she has had before an episode of cardiac arrest during episodes of COPD exacerbation and therefore, a decision was made to transfer her to [facility] to consult various subspecialties to assist in her management. FINAL DISCHARGE DIAGNOSES: Healthcare-associated pneumonia, chronic obstructive pulmonary disease exacerbation, acute hypoxic hypercapnic respiratory failure, influenza A, acute on chronic kidney injury, poorly controlled type 2 diabetes, hypertensive urgency, and flash pulmonary edema. CEHPE MADERA MD DR: YORDAN/imani JOB#: [id number] / [id number]
== END 2018-01-09 17:02 | disposition short-term general hospital (02) | DRG 871 ==
LOC: ER 11:51 → ICU 13:45
PROVIDERS: ADMIT Family Medicine; ATTEND Family Medicine
PROC: 5A09357 Assistance with Respiratory Ventilation, Less than 24 Consecutive Hours, Continuous Positive Airway Pressure (ICD-10-PCS; principal; 2018-01-07)
PROC: 5A09357 Assistance with Respiratory Ventilation, Less than 24 Consecutive Hours, Continuous Positive Airway Pressure (ICD-10-PCS; 2018-01-09)
DX: A41.9 Sepsis, unspecified organism (principal); J10.00 Influenza due to other identified influenza virus with unspecified type of pneumonia; J96.21 Acute and chronic respiratory failure with hypoxia; I50.31 Acute diastolic (congestive) heart failure; N17.9 Acute kidney failure, unspecified; E11.22 Type 2 diabetes mellitus with diabetic chronic kidney disease; I13.0 Hypertensive heart and chronic kidney disease with heart failure and stage 1 through stage 4 chronic kidney disease, or unspecified chronic kidney disease; E11.40 Type 2 diabetes mellitus with diabetic neuropathy, unspecified; J96.22 Acute and chronic respiratory failure with hypercapnia; N39.0 Urinary tract infection, site not specified; J44.0 Chronic obstructive pulmonary disease with (acute) lower respiratory infection; J44.1 Chronic obstructive pulmonary disease with (acute) exacerbation; E87.5 Hyperkalemia; E11.65 Type 2 diabetes mellitus with hyperglycemia; Y95 Nosocomial condition; R21 Rash and other nonspecific skin eruption; I16.0 Hypertensive urgency; N18.9 Chronic kidney disease, unspecified; I25.10 Atherosclerotic heart disease of native coronary artery without angina pectoris; Z89.411 Acquired absence of right great toe; Z88.5 Allergy status to narcotic agent; Z88.8 Allergy status to other drugs, medicaments and biological substances; Z87.891 Personal history of nicotine dependence; Z95.5 Presence of coronary angioplasty implant and graft
CPT/HCPCS: 36415; 36600; 51702; 71045; 80048; 80053; 80061; 81001; 82553; 82803; 82947; 83605; 83735; 83880; 84484; 85025; 85027; 85610; 87040; 87086; 87186; 87641; 87804; 93005; 93306; 94640; 94660; 96361; 96374; 96375; 99292; J0360; J1650; J1815; J1940; J2060; J2543; J2930; J3010; J3370; J3475; J3490; J7040; J7050; J7613; J7620; 99291-25; J7030